=== PATIENT | female | born 1995 | race Caucasian/White ===

== ENCOUNTER → 2017-01-22 01:51 | Observation (INO) ==
[2017-01-21 23:57] LABS: Bilirubin,Urine Negative (Negative); Blood,Urine Negative (Negative); Clarity,Urine Cloudy (Clear); Color,Urine Yellow (Yellow); Glucose,Urine (UA) Normal (Normal); Ketones,Urine Negative (Negative); Leukocyte Esterase,Urine Negative (Negative); Nitrite,Urine Negative (Negative); Protein,Urine Negative (Neg-Trace); Specific Gravity,Urine 1.029 (1.010-1.025); Urobilinogen,Urine Normal (Normal)
[2017-01-22 00:05] LABS: Amphetamine Screen,Urine Negative ng/mL (Cutoff=1000); Barbiturate Screen,Urine Negative ng/mL (Cutoff=200); Benzodiazepines Screen,Urine Negative ng/mL (Cutoff=200); Cannabinoid Screen,Urine Negative ng/mL (Cutoff = 50); Cocaine Screen,Urine Negative ng/mL (Cutoff= 300); Opiate Screen,Urine Negative ng/mL (Cutoff=300); Phencyclidine Screen,Urine Negative ng/mL (Cutoff=25)
[2017-01-22 00:09] LABS: Bacteria,Urine Moderate per hpf (None-Few); Mucus,Urine Few (Few); Squamous Epithelial Cell,Urine Many per lpf (None-Few)
[2017-01-22 00:10] LABS: RBC,Urine 0-3 per hpf (0-3); WBC,Urine 0-3 per hpf (0-3)
--- NOTE | 2017-01-22 01:41 | OB/GYN Progress Note ---
Date of Encounter: 01/23/17 Time of Encounter: 01:41 - Assessment and Plan (1) 28 weeks gestation of Status: Acute Place on observation, monitor heart tones and tocometry. Pt at 28 weeks, no cervical exams performed at this time. If reassuring FHTs, no contracions/loss of fluid, anticipate antepartum discharge. Subjective - Subjective Principal diagnosis: Back pain and lower extremity swelling Interval history: Sarah Mason, 21F, , presents to labor and delivery with low back pain ( 2/10) and swelling in her legs. Pt reports swelling increased upon standing for a prolonged period today when going to a concert with the father of the baby. Pt reports good movement, no loss of fluid, no contractions. Antepartum ROS: movement normal, no loss of fluid, no vaginal bleeding, no contractions Objective - Vital Signs Vital Signs: Intake and Output 01/21/17 01/21/17 01/22/17 15:59 23:59 07:59 Other: Weight 104.2 kg - Exam FHR: auscultation normal, category 1 FHR comments: 140s FHT baseline, moderate variability Auscultation: bilateral: normal Abdomen: Present: gravid Uterus: Absent: tenderness Cervical dilation: currently 28 weeks, not assessed. - Labs Labs: Abnormal lab results Urine Clarity Cloudy (Clear) A 01/21/17 23:45 Ur Specific [place] 1.029 (1.010-1.025) H 01/21/17 23:45 Ur Squamous Epith Cells Many per lpf (None-Few) H 01/21/17 23:45 Urine Bacteria Moderate per hpf (None-Few) H 01/21/17 23:45
== END | disposition home or self-care (01) ==
LOC: 1NENULAB
PROVIDERS: ADMIT Obstetrics & Gynecology; ATTEND Obstetrics & Gynecology

== ENCOUNTER → 2017-02-12 23:13 | Observation (INO) ==
[2017-02-12 19:59] LABS: Bilirubin,Urine Negative (Negative); Blood,Urine Negative (Negative); Clarity,Urine Cloudy (Clear); Color,Urine Yellow (Yellow); Glucose,Urine (UA) Normal (Normal); Ketones,Urine Negative (Negative); Leukocyte Esterase,Urine Negative (Negative); Nitrite,Urine Negative (Negative); Protein,Urine Negative (Neg-Trace); Specific Gravity,Urine 1.016 (1.010-1.025); Urobilinogen,Urine Normal (Normal)
[2017-02-12 20:02] LABS: Amphetamine Screen,Urine Negative ng/mL (Cutoff=1000); Barbiturate Screen,Urine Negative ng/mL (Cutoff=200); Benzodiazepines Screen,Urine Negative ng/mL (Cutoff=200); Cannabinoid Screen,Urine Negative ng/mL (Cutoff = 50); Cocaine Screen,Urine Negative ng/mL (Cutoff= 300); Opiate Screen,Urine Negative ng/mL (Cutoff=300); Phencyclidine Screen,Urine Negative ng/mL (Cutoff=25)
[2017-02-12 20:03] LABS: Hyaline Casts,Urine None Seen per lpf (None-Few); RBC,Urine 0-3 per hpf (0-3); Squamous Epithelial Cell,Urine Many per lpf (None-Few)
[2017-02-12 20:20] LABS: Bacteria,Urine Few per hpf (None-Few); Mucus,Urine Few (Few)
--- NOTE | 2017-02-12 21:24 | OB/GYN Progress Note ---
Date of Encounter: 02/12/17 Time of Encounter: 20:55 - Assessment and Plan (1) Nausea and vomiting during Current Visit: Yes Status: Acute (2) Diarrhea Current Visit: Yes Status: Acute at 31 3/7 weeks gestation presents with nausea, vomiting, diarrhea and decreased movement since yesterday. FHT show rates in 150s, moderate variability. [place] shows uterine irritability with occasional contraction. UA negative Suspect patient has dehydration secondary to gastroenteritis. Plan: -insert IV -LR 1L bolus -CBC, BMP -continue to monitor (3) 31 weeks gestation of Current Visit: Yes Status: Acute (4) Decreased movement during Current Visit: Yes Status: Acute Qualifiers: Fetus number: single or unspecified fetus Trimester: third trimester Qualified Code(s): O36.8130 - Decreased movements, third trimester, not applicable or unspecified Subjective - Subjective Principal diagnosis: Decreased movement, nausea, vomiting, diarrhea Interval history: Ms. Mason is a 21 y/o female at 31 3/7 weeks gestation who presents to L& D complaining of decreased movement, nausea, vomiting, diarrhea. She states that she woke up yesterday and felt sick to her stomach. She vomited 5 times yesterday and about 3 today. She also states that she had diarrhea that was both loose and watery 5 times yesterday and several times today. She can't eat or drink without feeling nausea. She has been fatigued and her skin is clammy. She states that she has not felt the baby move much since 1500 yesterday , but has felt him move 3 times in the last hour since she has been here. She also notes she has been SOB with exertion the last few weeks. She denies fevers , chills, LIANG, dizziness, blurred vision, ear pain, throat pain, rhinorrhea, cp, abd pain, flank pain, dysruia, rashes, vaginal bleeding or fluid leaking vaginally. She was noted to have polyhydramnios at 26cm on US on 01/26. Antepartum ROS: no loss of fluid, no vaginal bleeding, no movement normal , no contractions Objective - Vital Signs Vital Signs: Intake and Output 02/12/17 02/12/17 02/12/17 07:59 15:59 23:59 Other: Weight 105.7 kg Patient Weight 02/12/17 23:59 Weight 105.7 kg - Exam FHR: auscultation normal, category 1 FHR comments: moderate variability Auscultation: bilateral: normal Abdomen: Present: normal appearance, soft, gravid. Absent: tenderness Uterus: Present: normal, firm - Labs Labs: Abnormal lab results Urine Clarity Cloudy (Clear) A 02/12/17 19:45 Urine Microscopic WBC 3-5 per hpf (0-3) H 02/12/17 19:45 Ur Squamous Epith Cells Many per lpf (None-Few) H 02/12/17 19:45 - Attending Attestation I examined this patient and my medical decision-making was reviewed with the Resident Physician. I agree with the documented findings, disposition and treatment plan as described except to the extent set forth below.
[2017-02-12 21:32] LABS: Basophils % 0.3 %; Eosinophils % 0.3 %; Hematocrit 37.7 % (35.3-44.9); Hemoglobin 12.3 g/dL (11.5-15.4); Immature Granulocytes % 0.8 % (0-4); Lymphocytes # 1.8 K/mcL (0.6-4.6); Lymphocytes % 14.8 %; Mean Corpuscular HGB Conc 32.6 g/dL (31.6-35.5); Mean Corpuscular Hemoglobin 29.7 pg (28.0-33.3); Mean Corpuscular Volume 91.1 fL (83.0-100.0); Mean Platelet Volume 10.6 fL (9.4-12.4); Monocytes # 0.8 K/mcL (0.0-1.3); Monocytes % 6.3 %; Neutrophils # 9.3 K/mcL (1.6-8.9); Platelet Count 275 K/mcL (140-400); Red Blood Count 4.14 M/mcL (3.82-4.97); Red Cell Distribution Width 13.2 % (11.5-14.5); Segmented Neutrophils % 77.5 %
[2017-02-12 21:43] LABS: BUN/Creatinine Ratio 9 (6-26); Blood Urea Nitrogen 5 mg/dL (7-20); Calcium 9.2 mg/dL (8.6-10.8); Carbon Dioxide 23 mEq/L (19-29); Chloride 104 mEq/L (98-109); Glucose 80 mg/dL (70-99); Osmolality,Calculated 278 (280-300); Potassium 3.6 mEq/L (3.5-4.5); Sodium 136 mEq/L (136-145); eGFR For African Americans > 60 (> 60); eGFR For Non-African Americans > 60 (> 60)
[~2017-02-12 23:13] MED LIST: Ringers Solution, Lactated 1,000 ML IVC ONE
== END | disposition home or self-care (01) ==
LOC: 1NENULAB
PROVIDERS: ADMIT Obstetrics & Gynecology; ATTEND Obstetrics & Gynecology

== ENCOUNTER → 2017-04-05 02:15 | Observation (INO) ==
[2017-04-05 00:33] VITALS: BP 142/65
--- NOTE | 2017-04-05 02:14 | Discharge Summary ---
Date of Encounter: 04/05/17 Time of Encounter: 02:14 - Discharge Diagnosis (1) 38 weeks gestation of Priority: Primary Status: Acute Comments: patient admitted for observation Nitrazine negative, no cervical change after 2 hours of monitoring discharge home follow up with Dr. Livingston as scheduled (2) NST (non-stress test) reactive on surveillance Priority: Secondary Status: Acute Comments: baseline 135 bpm moderate variability +15x15 accels no decels noted. - Discharge Medications Home Medications: Formula Tablet 1 tab PO DAILY 01/21/17 [History] Allergies/Adverse Reactions: 3 Allergy/AdvReac Type Severity Reaction Status Date / Time azithromycin Allergy Hives Verified 02/12/17 19:57 [From Zithromax Z-Edil] Date of admission: 04/05/17 00:18 Discharging clinician: Belkis Cameron Anticipated date of discharge: 04/05/17 - Patient Status Disposition: Home, Self-Care Condition: Good Functional capacity at discharge: independent ambulation - Discharge Instructions Follow Up With: John Livingston MD [Partnered Physician] - - Diet and Activity Activity: increase activity as tolerated Diet: regular diet 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 Patient denies VB. Patient reports + FM. Nitrazine negative, perineum dry. SVE /-2 Time Attestation: Total time spent providing and/or coordinating discharge services: Time Spent: Less than 30 minutes Exam - Constitutional Vitals: Temp Pulse Resp BP 98.0 F 112 16 142/65 04/05/17 00:26 04/05/17 00:26 04/05/17 00:26 04/05/17 00:26 General appearance IM: A&O X 3, pleasant (FHR 135 bpm moderate variability + 15x15 accels no decels noted. irregular contractions. Cat. 1 tracing.) - Neurological Exam Additional comments: Nitrazine: Negative. SVE /-2 per RN. - VTE Reasons for not Prescribing Prophylaxis: Treatment not Indicated - Low risk for VTE
== END | disposition home or self-care (01) ==
LOC: 1NENULAB
PROVIDERS: ADMIT Obstetrics & Gynecology; ATTEND Obstetrics & Gynecology

== ENCOUNTER → 2017-04-07 08:40 | Observation (INO) ==
--- NOTE | 2017-04-11 08:31 | OB/GYN Progress Note ---
Date of Encounter: 04/07/17 Time of Encounter: 07:00 - Assessment and Plan (1) 39 weeks gestation of Status: Acute Patient was scheduled for primary section. Dr. Livingston spoke to her and she was rescheduled for Monday.
== END | disposition home or self-care (01) ==
LOC: 1NENULAB
PROVIDERS: ADMIT Obstetrics & Gynecology; ATTEND Obstetrics & Gynecology

== ENCOUNTER 2017-04-10 04:33 | Inpatient (IN) ==
[~2017-04-10 04:33] MED LIST changes: +*HR* Nalbuphine 20 MG/ML AMPUL IVP PRN; +Famotidine 20 MG/2 ML VIAL IVP PRN; +Metoclopramide 10 MG/2 ML VIAL IVP PRN; -Ringers Solution, Lactated 1,000 ML IVC ONE
[2017-04-10] MEDS ORDERED: Ringers Solution, Lactated 1,000 ML ONE ×2 (04:39→18:09)
[2017-04-10] MEDS ORDERED: Ringers Solution, Lactated 1,000 ML IVC SCH ×2 (04:45→21:42)
[2017-04-10 05:02] LABS: Basophils % 0.3 %; Eosinophils # 0.1 K/mcL (0.0-0.6); Eosinophils % 0.7 %; Hematocrit 39.1 % (35.3-44.9); Hemoglobin 12.6 g/dL (11.5-15.4); Immature Granulocytes % 0.6 % (0-4); Lymphocytes # 1.8 K/mcL (0.6-4.6); Lymphocytes % 14.9 %; Mean Corpuscular HGB Conc 32.2 g/dL (31.6-35.5); Mean Corpuscular Hemoglobin 28.3 pg (28.0-33.3); Mean Corpuscular Volume 87.9 fL (83.0-100.0); Mean Platelet Volume 11.5 fL (9.4-12.4); Monocytes # 0.8 K/mcL (0.0-1.3); Monocytes % 6.5 %; Neutrophils # 9.2 K/mcL (1.6-8.9); Platelet Count 260 K/mcL (140-400); Red Blood Count 4.45 M/mcL (3.82-4.97); Red Cell Distribution Width 15.4 % (11.5-14.5)
[2017-04-10 05:10] LABS: Amphetamine Screen,Urine Negative ng/mL (Cutoff=1000); Barbiturate Screen,Urine Negative ng/mL (Cutoff=200); Benzodiazepines Screen,Urine Negative ng/mL (Cutoff=200); Cannabinoid Screen,Urine Negative ng/mL (Cutoff = 50); Cocaine Screen,Urine Negative ng/mL (Cutoff= 300); Opiate Screen,Urine Negative ng/mL (Cutoff=300); Phencyclidine Screen,Urine Negative ng/mL (Cutoff=25)
[2017-04-10] MEDS ORDERED: Epidural Premix (fent/bupiv) 110 ML EP ONE ×2 (05:38→12:02)
[2017-04-10] MEDS ORDERED: Epidural Premix (fent/bupiv) 110 ML EP SCH (05:45)
--- NOTE | 2017-04-10 06:12 | OB/GYN History & Physical ---
Date of Encounter: 04/10/17 Time of Encounter: 06:26 Assessment and Plan (1) Spontaneous onset of labor Current visit: Yes Status: Acute Patient reported contractions starting last night and have been every 2-3 minutes. Last check per nursing she was 5-6/100/-1 LR @ 125ml/hr CBC UDS Patient has gotten an epidural monitoring Plan for vaginal delivery (2) 39 weeks gestation of Current visit: Yes Status: Acute Patient is admitted for Spontaneous labor and evaluation History of Present Illness Chief complaint: Contractions HPI: Ms. Mason is a 21 year old female at 39w4d presents to L&D for contractions and vaginal bleeding that began around 2200 last night. She states that the contractions had been about 2-3 minutes apart. She states that she has been having vaginal bleeding but no loss of fluid. She has had some mucus like discharge since yesterday. States the she is still feeling good movement. Denies any pain other than with the contractions. States that she sees Dr Livingston in the office and was scheduled for induction tomorrow. She states that she had polyhydraminosis but that has resolved. Blood Type O positive GBS NEgative Rubella-Immune HbSAG Nonreactive T pallidum-Negative HIV Negative Chlamydia Negative Gonnorrhea Negative Past Med Surg Social Fam HX - Past Medical History Medical history: asthma Psychiatric history: no psych history - Past Surgical History Surgical History: other - Social History Smoking Status: Former smoker Smokeless Tobacco Status: No Alcohol use: none Drug use: none - Family History Brother Living Status: Still Living Hx Family Cardiac Disorders: No Hx Family Respiratory Disorders: No Hx Family Cancer: No Hx Family GI Disorders: No Hx Family Genitourinary Disorders: No Hx Family Endocrine Disorder: No Hx Family Musculoskeletal Disorders: No Hx Family Neuromuscular Disorders: No Hx Family Neurologic Disorders: No Hx Family HEENT Disorders: No Hx Family Autoimmune Disorders: No Hx Family Reproductive Disorders: No Hx Family Psychosocial Disorders: No Hx Family Medical Disorders: No Obstetrical History - Pregnancies : 1 Para: 0 Term: 0 : 0 Ab's: 0 Livin - History/Complications History/Complications: States that she had polyhydraminosis that has resolved on her own. She also reports an anterior placenta. Medications and Allergies Formula Tablet 1 tab PO DAILY 01/21/17 [History] 3 Allergy/AdvReac Type Severity Reaction Status Date / Time azithromycin Allergy Hives Verified 02/12/17 19:57 [From Zithromax Z-Edil] Review of System OB All systems PM: reviewed and no additional remarkable complaints except as stated Exam - Vital Signs Vital signs: Initial Vital Signs Pulse Resp BP 103 14 133/85 04/10/17 04:20 04/10/17 04:20 04/10/17 04:20 - Constitutional Constitutional: well developed, well nourished, no acute distress - HEENT HEENT: Normocephaly - Neck Neck exam: full ROM, supple - Lungs Respiratory exam: CTAB - Cardiovascular Cardiovascular exam: RRR, +S1, +S2 - Abdomen Abdomen: Present: bowel sounds normal, gravid, non tender - Extremities Extremities exam: full ROM, normal inspection, pedal edema (Mild ) - Cervix Dilation: 5 (Per nursing) Effacement: 100 (Per Nursing) Station: -1 Results Result Diagrams: 04/10/17 04:45 Abnormal lab results WBC 11.9 K/mcL (4.3-11.1) H 04/10/17 04:45 RDW 15.4 % (11.5-14.5) H 04/10/17 04:45 Neutrophils # 9.2 K/mcL (1.6-8.9) H 04/10/17 04:45 All other labs normal. - VTE Reasons for not Prescribing Prophylaxis: Treatment not Indicated - Low risk for VTE
--- NOTE | 2017-04-10 06:24 | Anesthesia Evaluation PreOp ---
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: Denies Any Significant HX Other Medical History: Denies Any Significant HX Anesthesia History: No Prior Anesthetic Complications : Yes Test: Positive Alcohol Use: none Drug use: none, unknown Medications and Allergies Formula Tablet 1 tab PO DAILY 01/21/17 [History] 3 Allergy/AdvReac Type Severity Reaction Status Date / Time azithromycin Allergy Hives Verified 02/12/17 19:57 [From Zithromax Z-Edil] - Meds/Allergy Pre-op Review Medications Reviewed: Yes Allergies Reviewed: Yes Beta Blockers on Current Med List: No Anesthesia Results - Labs 04/10/17 04:45 Anesthesia Exam Height: 61 NPO (# of Hours): mn - HEENT Pupil (Motor): Pupils equal Mallampati: II Teeth: Normal Oral Opening: Greater than 3 - 5TH GRADE TEACHER LOC: Oriented 5[employer] 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
--- NOTE | 2017-04-10 06:26 | Anesthesia Procedures ---
Date of Encounter: 04/10/17 Time of Encounter: 05:40 Procedures: Anesthesia - Epidural/Spinal Patient ID/Chart reviewed: Yes Patient examined: Yes OB Eval: Gestational age: 39.4 OB Eval: : 1 OB Eval: Hx Para: 0 OB Eval: Contractions: Non-stressed pattern Consent Obtained: Yes Supplemental Oxygen: None/Room Air Site Prep: Aseptic Technique, Sterile prep and drape, Povidone-Iodine 1% Patient position: upright Local Anesthetic: Lidocaine 1% Amount of Local Anesthetic used: 3 Touhy Needle Gauge: 18 Touhy Needle Depth (cm): 9 Catheter Depth at Skin (cm): 8 Test Dose (1.5% Lido + Epi): Volume given (mls): 3 Test Dose Result: Negative Loading Dose: Other: 10ml premix Loading Dose Administered: Thru Catheter Infusion Rate (mls/hr): [address]: Tegaderm, Tape Interspace Used: L4-L5 Loss of Resistance (IVONNE): Yes Blood: No CSF: No Paresthesia: No Vitals + FHT's: stable throughout no anesthesia complications, uneventful epidural placement
[2017-04-10] MEDS ORDERED: Methylergonovine 0.2 MG/ML AMPUL IM ONE (09:08)
--- NOTE | 2017-04-10 10:42 | OB Labor Progress Note ---
Date of Encounter: 04/10/17 Time of Encounter: 10:39 Labor Progress Note - Subjective Subjective: Pt comfortable with epidural - Cervix Cervix: 7/100/-1 - Heart Tones Heart Tones: 140/moderate/+accels/-decels - [place]: 4-5.5 - Interventions Interventions: AROM for clear fluid at 0937 - Plan Plan: Continue current management plan Will add pitocin if no cervical change Anticipate
--- NOTE | 2017-04-10 14:10 | OB Labor Progress Note ---
Date of Encounter: 04/10/17 Time of Encounter: 14:07 Labor Progress Note - Subjective Subjective: Pt comfortable with epidural - Cervix Cervix: 8/100/-2 - Heart Tones Heart Tones: 140/moderate/+accels/-decels - [place]: adjusted - Interventions Interventions: Repositioned from peanut ball to left lateral - Plan Plan: Will start pitocin due to no cervical change
[2017-04-10] MEDS ORDERED: Oxytocin 20 units/ LR 1000 mL 20 UNIT/1,000 ML BAG IVC SCH ×3 (14:30→21:42)
--- NOTE | 2017-04-10 17:17 | OB Labor Progress Note ---
Date of Encounter: 04/10/17 Time of Encounter: 17:15 Labor Progress Note - Subjective Subjective: patient still feeling min pain, is feeling some pressure, has been on pitocin for sometime - Cervix Cervix: 9/100/-3 ballotable, head can be disengaged from the pelvis - Heart Tones Heart Tones: Heart tones 140s reactive - [place]: Contractions every 2 minutes - Plan Plan: will prep for primary low transverse section
[2017-04-10] MEDS ORDERED: ceFAZolin 2,000 MG in Water for inj. (sterile) 20 ML IVP ONE (17:21)
[2017-04-10] MEDS ORDERED: *HR* Morphine Sulfate/PF 5 MG/10 ML AMPUL ONE (17:26)
[2017-04-10] MEDS ORDERED: Ondansetron 4 MG/2 ML VIAL ONE (17:27)
[2017-04-10] MEDS ORDERED: *HR* Phenylephrine 10 MG/ML VIAL ONE (17:27)
[2017-04-10] MEDS ORDERED: *HR* Oxytocin 10 UNIT/ML VIAL IM ONE (17:27)
[2017-04-10] MEDS ORDERED: Ondansetron 4 MG/2 ML VIAL IVP PRN ×3 (17:49→22:04)
[2017-04-10] MEDS ORDERED: Chloroprocaine/PF 20 ML VIAL INFILT ONE (18:22)
[2017-04-10] MEDS ORDERED: Bupivacaine-MPF 0.25% 10 ML VIAL ONE (18:22)
--- NOTE | 2017-04-10 19:34 | OB/GYN Procedure Note ---
Section - Date of procedure: 04/10/17 Preop diagnosis: other (Intrauterine at 39-4/7 weeks, arrest of descent, cephalopelvic disproportion, large for gestational age) Post-op diagnosis: same Procedure: primary low transverse Surgeon: Jaden Hurst Estimated blood loss (cc): 600 Sheet Writer: Chepe Guadarrama ([email or web address]) Canning Machine Operator: Johan Dubois Anesthesia Type: Epidural section complications: none Disposition: L&D Recovery Room Specimens: Cord blood - (s) A Infant Delivery Date: 04/10/17 Infant Delivery Time: 18:17 Presentation: vertex Position: MARGARETH Gender: Male Viability: Viable Pounds: 8 Ounces: 7 Gram Weight: 3.83 kg at 1 minute: 8 at 5 minutes: 9 Shoulder Dystocia: not encountered Specimens collected: cord blood Cord: 3 umbilical vessels - Narrative Narrative: Patient is a 21-year-old 1 para 0 at 39-4/7 weeks who presented to labor and delivery in active labor. Patient was transferred from [facility] due to labor. Upon arrival to labor and delivery she was 6 cm. Patient has a history of a large for gestational age was originally going to be scheduled for primary but they decided a trial of labor. Patient was artificially ruptured when she was 8 cm large amount of clear fluid noted. Contractions had spaced out she was augmented with Pitocin patient got to 9 cm but head never dropped below the Nexplanon -3 station. She was internalized and Pitocin was started and head still was -3 ballotable. It was decided this time that there was arrest of descent section was called. Procedure patient was taken to the operating room where epidural anesthesia was found be adequate. She was placed in the dorsal supine position with a leftward tilt prepped and draped in usual fashion. Timeout was then obtained a Pfannenstiel incision was made with a scalpel and carried down to the underlying tissue to the fascia was identified. Fascia was nicked in midline and extended laterally with the Chou scissors. The superior and inferior edges of the fascia grasped tented up and dissected off the rectus muscles. Rectus muscles were in midline parietal peritoneum was identified tented up and entered sharply. This was extended superiorly and inferiorly with Metzenbaum scissors. Bladder blade was inserted the vesicouterine peritoneum was identified tented up and entered sharply. This is extended laterally the bladder flap was created digitally. The lower uterine segment was incised with a scalpel extended laterally with digital manipulation. Infant's head was disengaged put out through the incision then fully delivered. Cord was clamped and cut and was handed off to waiting pediatric team. Cord blood was collected placenta was then spontaneously delivered with a three-vessel cord. Teacher Private was Dr. Hurst, first aid instructor Dr. Chepe Guadarrama PGY 1. Uterus was then exteriorized and cleaned of all clots and debris, then the lower uterine segment was closed using 0 Vicryl in a running locking stitch by 2 layer closure. Good hemostasis was noted uterus remained boggy and 0.2 mg Methergine was given IM by anesthesia. Uterus did firm up at this point. Uterus was returned to the abdomen the gutters were cleaned of all clots and debris then copiously irrigated. The fascia was then closed using a #1 stratafix running stitch and the subcutaneous tissue was closed using an 0 chromic in a running stitch and the skin was closed using a 4-0 Vicryl in subcuticular manner. A YURI dressing was then applied. All needles lap and sponge counts were correct 3 patient did receive preoperative antibiotics. She was taken to the recovery room in stable condition will be observed 2 hours before being taken floor.
[2017-04-10] MEDS: *HR* HYDROmorphone (PF) 1 MG/ML SYRINGE IVP PRN ×3 (20:01→20:22)
[2017-04-10] MEDS ORDERED: Metoclopramide 10 MG/2 ML VIAL IVP PRN (21:42)
[2017-04-10] MEDS ORDERED: Sennosides 8.6 MG TABLET PO PRN (21:42)
[2017-04-10] MEDS ORDERED: Simethicone 80 MG TAB.CHEW PO PRN (21:42)
[2017-04-10] MEDS ORDERED: *HR* HYDROmorphone (PF) 1 MG/ML SYRINGE IVP PRN (22:04)
--- NOTE | 2017-04-10 22:04 | Anesthesia Evaluation Post Op ---
Date of Encounter: 04/10/17 Time of Encounter: 22:03 - Vital Signs Vital Signs: Vital Signs/O2 Sat, Most Current Temp Pulse Resp BP Pulse Ox 98.4 F 94 16 104/77 96 04/10/17 21:10 04/10/17 21:10 04/10/17 21:10 04/10/17 21:10 04/10/17 21:10 - Lungs Lungs: Clear Ascult./Percussion - Airway Airway: Non-obstructed - Cardiovascular Regular Rate - Mental Status Mental Status: Alert & Oriented, Answers Appropriately - Pain Pain Scale: 2 Pain Scale used: Numeric (1 - 10) - Nausea Vomiting Nausea Vomiting: Not Present - Hydration Hydration: NPO - Discharge PostOp Status: Transfer Patient to floor (VSS, minimal pain)
[2017-04-10] MEDS: *HR* OxyCODONE/APAP 5/325 TABLET PO PRN (22:25)
[2017-04-10] MEDS: Ibuprofen 600 MG TABLET PO PRN (22:25)
[2017-04-11] MEDS: Ibuprofen 600 MG TABLET PO PRN ×3 (03:52→17:36)
[2017-04-11] MEDS: *HR* OxyCODONE/APAP 5/325 TABLET PO PRN ×4 (03:53→17:36)
[2017-04-11 06:41] LABS: Basophils % 0.1 %; Eosinophils % 0.4 %; Immature Granulocytes % 0.3 % (0-4); Lymphocytes # 1.2 K/mcL (0.6-4.6); Mean Corpuscular HGB Conc 32.3 g/dL (31.6-35.5); Mean Corpuscular Hemoglobin 28.9 pg (28.0-33.3); Mean Corpuscular Volume 89.3 fL (83.0-100.0); Mean Platelet Volume 10.8 fL (9.4-12.4); Monocytes # 0.6 K/mcL (0.0-1.3); Monocytes % 6.1 %; Neutrophils # 7.6 K/mcL (1.6-8.9); Platelet Count 172 K/mcL (140-400); Red Blood Count 3.36 M/mcL (3.82-4.97); Red Cell Distribution Width 15.6 % (11.5-14.5); Segmented Neutrophils % 80.1 %
[2017-04-11 06:42] LABS: Hemoglobin 9.7 g/dL (11.5-15.4)
[2017-04-11] MEDS: Prenatal Vit/FA 1 EACH TABLET PO SCH (08:35)
[2017-04-11] MEDS ORDERED: NON-FORMULARY MEDICATION 1 EACH EACH (Prenatal Formula Tablet 1 TAB) PO SCH (09:00)
--- NOTE | 2017-04-11 09:03 | OB/GYN Progress Note ---
Date of Encounter: 04/11/17 Time of Encounter: 09:01 - Assessment and Plan (1) S/P Current Visit: Yes Status: Acute Patient is S/P C section day 1. She was resting in bed at the time of exam. She states that she has been able to stand up and change but has not ambulated yet. She states that she just had her catheter taken out and has not been to the bathroom since then. Reports that she has been passing gas but no bowel movement. States that she is still having some vaginal bleeding. Patient states that she is still having some abdominal pain. States that she has been eating a normal diet without any issues. Ambulate as tolerated. Oxycodone ordered for pain control Continue to monitor vaginal bleeding Continue eating as tolerated Monitor urine output now that the catheter is out (2) Breast feeding status of mother Current Visit: Yes Status: Acute Patient state that she been trying to breast feed and the baby has successfully latched. (3) anemia Current Visit: Yes Status: Acute Patient has a hemoglobin of 9.7 down from 12.6. Patient has ferrous sulfate ordered. Subjective - Subjective Principal diagnosis: S/P C Section Interval history: Patient is S/P C section day 1. She was resting in bed at the time of exam. She states that she has been able to stand up and change but has not ambulated yet. She states that she just had her catheter taken out and has not been to the bathroom since then. Reports that she has been passing gas but no bowel movement. States that she is still having some vaginal bleeding. Patient states that she is still having some abdominal pain. States that she has been eating a normal diet without any issues. Patient reports: appetite normal, other (Able to stand but has not walked or been to the bathroom yet), no nauseated [place]: doing well, other (Has had successful latched to the breast ) Objective - Vital Signs Latest vital signs: Vital Signs Temp Pulse Resp BP Pulse Ox 04/11/17 08:20 16 04/11/17 04:41 98.3 F 98 16 113/73 96 04/11/17 00:35 98.2 F 98 16 123/82 97 04/10/17 23:30 98.2 F 99 16 116/75 95 04/10/17 22:30 98.9 F 95 16 119/79 95 04/10/17 22:00 98.7 F 99 16 124/78 95 04/10/17 21:30 98.9 F 92 18 116/66 96 04/10/17 21:10 98.4 F 94 16 104/77 96 04/10/17 20:55 98.5 F 89 16 104/77 97 04/10/17 20:40 98.4 F 95 16 128/72 96 04/10/17 20:25 98.8 F 88 14 127/60 99 04/10/17 20:10 98.7 F 96 16 126/82 97 04/10/17 19:55 98.6 F 92 14 123/88 96 04/10/17 19:40 98.7 F 89 16 110/62 98 04/10/17 19:25 98.9 F 87 16 119/71 97 Intake and Output 04/10/17 04/11/17 04/11/17 23:59 07:59 15:59 Intake Total 600 / 600 Output Total 1400 / 1400 625 / 625 Balance -1400 / -1400 -25 / -25 Intake: Oral 600 / 600 Output: Catheter 1400 / 1400 625 / 625 Other: Weight 110.586 kg Patient Weight 04/11/17 23:59 Weight 110.586 kg - Exam Lungs: bilateral: normal Chest: Normal S1, Normal S2 Extremities: Present: normal. Absent: tenderness Abdomen: Present: normal appearance, soft, tenderness (Tenderness to lower abdomen. ) Incision: Present: dressed Uterus: Present: firm - Labs Labs: Laboratory Results - last 24 hr 04/11/17 06:31 WBC 9.4 RBC 3.36 L Hgb 9.7 L D Hct 30.0 L MCV 89.3 MCH 28.9 MCHC 32.3 RDW 15.6 H Plt Count 172 MPV 10.8 Immature Gran % 0.3 Seg Neutrophils % 80.1 Lymphocytes % 13.0 Monocytes % 6.1 Eosinophils % 0.4 Basophils % 0.1 Neutrophils # 7.6 Lymphocytes # 1.2 Monocytes # 0.6 Eosinophils # 0.0 Basophils # 0.0
[2017-04-11] MEDS: *HR* OxyCODONE/APAP 10/325 TABLET PO PRN (21:37)
[2017-04-12] MEDS: *HR* OxyCODONE/APAP 10/325 TABLET PO PRN ×2 (04:40→10:24)
[2017-04-12] MEDS: Ibuprofen 600 MG TABLET PO PRN ×2 (04:41→10:24)
[2017-04-12 08:50] VITALS: BP 113/72
--- NOTE | 2017-04-12 09:11 | Discharge Summary ---
Date of Encounter: 04/12/17 Time of Encounter: 09:10 - Discharge Diagnosis (1) S/P Priority: Primary Status: Acute Comments: Patient is s/p POD#2 due to failure to progress during labor. She is meeting all post-operative milestones. Pain is controlled with Percocet and ibuprofen currently. (2) Breast feeding status of mother Priority: Secondary Status: Acute (3) anemia Priority: Secondary Status: Acute Comments: Hb 9.7 down from 12.6. Patient denies symptoms of anemia. Will continue ferrous sulfate. (4) 39 weeks gestation of Priority: Secondary Status: Acute - Discharge Medications Prescriptions: Ibuprofen [Motrin] 600 mg PO Q6HR PRN #60 tablet PRN Reason: Cramping OxyCODONE/APAP 10/325 [Percocet 10/325 MG] 1 each PO Q6HR PRN #20 tablet PRN Reason: Moderate Pain Breast Pump [BREAST PUMP] 1 each .ROUTE AD #1 each Docusate [Colace] 100 mg PO BID PRN #60 capsule PRN Reason: Constipation Ferrous Sulfate 325 mg PO DAILY #30 tablet Simethicone [Gas-X] 80 mg PO TID PRN #60 tab.chew PRN Reason: Dyspepsia Home Medications: Formula Tablet 1 tab PO DAILY 01/21/17 [History] Breast Pump [BREAST PUMP] 1 each .ROUTE AD #1 each 04/12/17 [Rx] Docusate [Colace] 100 mg PO BID PRN #60 capsule 04/12/17 [Rx] Ferrous Sulfate 325 mg PO DAILY #30 tablet 04/12/17 [Rx] Ibuprofen [Motrin] 600 mg PO Q6HR PRN #60 tablet 04/12/17 [Rx] OxyCODONE/APAP 10/325 [Percocet 10/325 MG] 1 each PO Q6HR PRN #20 tablet [Rx] Simethicone [Gas-X] 80 mg PO TID PRN #60 tab.chew 04/12/17 [Rx] Allergies/Adverse Reactions: 3 Allergy/AdvReac Type Severity Reaction Status Date / Time azithromycin Allergy Hives Verified 02/12/17 19:57 [From Zithromax Z-Edil] Data Procedures and tests throughout hospitalization: Laboratory Tests 04/10/17 04/10/17 04/11/17 04:45 04:50 06:31 WBC 11.9 H 9.4 RBC 4.45 3.36 L Hgb 12.6 9.7 L D Hct 39.1 30.0 L MCV 87.9 89.3 MCH 28.3 28.9 MCHC 32.2 32.3 RDW 15.4 H 15.6 H Plt Count 260 172 MPV 11.5 10.8 Immature Gran % 0.6 0.3 Seg Neutrophils % 77.0 80.1 Lymphocytes % 14.9 13.0 Monocytes % 6.5 6.1 Eosinophils % 0.7 0.4 Basophils % 0.3 0.1 Neutrophils # 9.2 H 7.6 Lymphocytes # 1.8 1.2 Monocytes # 0.8 0.6 Eosinophils # 0.1 0.0 Basophils # 0.0 0.0 Urine Opiates Screen Negative Ur Barbiturates Screen Negative Ur Phencyclidine Scrn Negative Ur Amphetamines Screen Negative U Benzodiazepines Scrn Negative Urine Cocaine Screen Negative U Marijuana (THC) Screen Negative Date of admission: 04/10/17 04:33 Primary care physician: PCP NONE Discharging clinician: Chepe Guadarrama Anticipated date of discharge: 04/12/17 - Patient Status Disposition: Home, Self-Care Condition: Good Functional capacity at discharge: independent ambulation Overall status at discharge: patient is progressing back to baseline - Discharge Instructions Follow Up With: NONE,PCP [Primary Care Provider] - Jaden Hurst DO [Partnered Physician] - Additional Instructions: Take your medications as prescribed Feed your baby every 2-3 hours - Diet and Activity Activity: increase activity as tolerated Diet: advance to your usual diet Hospital Course Reason for admission: active labor Delivery: section Episiotomy: none Laceration: none Other procedures: none complications: none Discharge diagnosis: IUP at term delivered baby: male Hospital course: - Date of procedure: 04/10/17 Preop diagnosis: other (Intrauterine at 39-4/7 weeks, arrest of descent, cephalopelvic disproportion, large for gestational age) Post-op diagnosis: same Procedure: primary low transverse Surgeon: Jaden Hurst Estimated blood loss (cc): 600 Signal Fitter: Chepe Guadarrama ([email or web address]) Manager Msw: Johan Dubois Anesthesia Type: Epidural section complications: none Disposition: L&D Recovery Room Specimens: Cord blood - Infant (s) Infant A Infant Delivery Date: 04/10/17 Delivery Time: 18:17 Presentation: vertex Position: MARGARETH Gender: Male Viability: Viable Pounds: 8 Ounces: 7 Gram Weight: 3.83 kg at 1 minute: 8 at 5 minutes: 9 Shoulder Dystocia: not encountered Specimens collected: cord blood Cord: 3 umbilical vessels - Narrative Narrative: Delivery via section at 39-4/7 weeks due to arrest of descent. YURI dressing placed on incision. Pt is meeting all post-operative milestones and is stable to be discharged home. Time Attestation: Total time spent providing and/or coordinating discharge services: Time Spent: Less than 30 minutes - VTE Reasons for not Prescribing Prophylaxis: Treatment not Indicated - Low risk for VTE Documentation of Mechanical Device: Intermittent pneumatic compression device - Attending Attestation I examined this patient and my medical decision-making was reviewed with the Resident Physician. I agree with the documented findings, disposition and treatment plan as described. Angy Hand CNM Exam - Constitutional Vitals: Temp Pulse Resp BP Pulse Ox 97.9 F 100 16 113/72 96 04/12/17 07:30 04/12/17 07:30 04/12/17 07:30 04/12/17 07:30 04/12/17 07:30 General appearance IM: A&O X 3, no acute distress - Respiratory Respiratory exam: Present: CTAB - Cardiovascular Cardiovascular exam IM: Present: RRR, +S1, +S2 - GI/Abdominal GI/Abdominal exam IM: normal bowel sounds, no peritoneal signs Incision: dry (YURI dressing in place), intact - Uterine Tone: Firm Uterus Position: 2 Fingers Below Umbilicus - Extremities Exam Extremities exam IM: Present: pedal edema (mild bilaterally) - Neurological Exam Neurological exam: alert, CN II-XII intact, no focal deficits - Psychiatric Additional comments: Reports mood is "okay"
[2017-04-12] MEDS: Prenatal Vit/FA 1 EACH TABLET PO SCH (10:21)
== END 2017-04-12 12:11 | disposition home or self-care (01) | DRG 540 ==
LOC: 1NENULAB → 1NENUOBS 23:53
PROVIDERS: ADMIT Obstetrics & Gynecology; ATTEND Obstetrics & Gynecology